=== PATIENT | female | born 1970 | race Caucasian/White ===

== ENCOUNTER 2017-02-01 22:30 | Emergency (ER) | payer OTHER ==
[~2017-02-01] VITALS: Ht 162.6 cm; Wt 72.0 kg
[2017-02-01] MEDS ORDERED: SODIUM CHLORIDE FLUSH 10ML SYR IVF ONE (23:00)
[2017-02-01] MEDS ORDERED: DIPH,PERTUSS(ACELL),TET VAC/PF 0.5 ML IM-VACC ONE ×2 (23:00→23:04)
[2017-02-01 23:25] LABS: BLOOD UREA NITROGEN 7 mg/dL (7-18)
[2017-02-01 23:29] LABS: IS PT STATUS REG ER OR PRE ER? YES
[2017-02-02] MEDS ORDERED: POTASSIUM CHLORIDE 20 MEQ TAB.ER.PRT PO ONE
[2017-02-02] MEDS ORDERED: ONDANSETRON ODT 4 MG PO ONE (00:30)
[2017-02-02] MEDS ORDERED: POTASSIUM CHLORIDE 20 MEQ TAB.ER.PRT ONE (00:38)
[2017-02-02] MEDS ORDERED: ONDANSETRON ODT 4 MG ONE (00:39)
[2017-02-02 00:53] VITALS: BP 124/80
== END 2017-02-02 00:55 | disposition home or self-care (01) ==
LOC: ED 02-02 00:49
DX: S01.112A Laceration without foreign body of left eyelid and periocular area, initial encounter (principal); S20.212A Contusion of left front wall of thorax, initial encounter; S40.012A Contusion of left shoulder, initial encounter; S06.0X0A Concussion without loss of consciousness, initial encounter; R55 Syncope and collapse; Z87.891 Personal history of nicotine dependence; Z90.710 Acquired absence of both cervix and uterus; W19.XXXA Unspecified fall, initial encounter; Y93.01 Activity, walking, marching and hiking; Y92.89 Other specified places as the place of occurrence of the external cause; Y99.8 Other external cause status
CPT/HCPCS: 36415; 70450; 71010; 80048; 80307; 82040; 84484; 85025; 90471; 90715; 93005; 99285; Q0162